=== PATIENT | male | born 1985 | race Caucasian/White ===

== ENCOUNTER 2018-08-26 10:01 | Emergency (ER) | payer MEDICAID ==
[~2018-08-26] VITALS: Ht 165.1 cm; Wt 130.6 kg
[~2018-08-26 10:01] MED LIST: ALPR1TAB2; ATEN-42; CEPH500T; CIPR-263; LISI10TA5
[2018-08-26] MEDS ORDERED: KETOROLAC 30MG/ML VIAL IV STA (10:31)
[2018-08-26] MEDS ORDERED: SODIUM CHLORIDE 0.9% 1,000 ML IV ONE (10:31)
[2018-08-26 12:09] LABS: HEMATOCRIT. 42.4 % (42.0-52.0); HEMOGLOBIN. 14.6 g/dL (14.0-18.0); MEAN CORPUSCULAR HEMOGLOBIN 30.1 pg (28.0-32.0); MEAN CORPUSCULAR VOLUME 87.4 fL (80.0-94.0); MEAN PLATELET VOLUME 8.4 fl (7.4-10.4); PLATELET 295 x1000/uL (130-400); RED BLOOD CELL COUNT 4.85 mill/uL (4.7-6.1); RED CELL DISTRIBUTION WIDTH 12.9 % (11.6-14.6)
[2018-08-26 12:17] LABS: CHLORIDE 106 mEq/L (98-107)
[2018-08-26 12:18] LABS: INR 1.1; PARTIAL THROMBOPLASTIN TIME 23.7 sec (23.4-31.0)
[2018-08-26 12:45] LABS: CLARITY URINE TURBID (CLEAR); COLOR URINE ORANGE (YELLOW); KETONES URINE NEGATIVE (NEGATIVE); LEUKOCYTE ESTERASE URINE TRACE (NEGATIVE); NITRITE URINE NEGATIVE (NEGATIVE); OCCULT BLOOD URINE 3+ (NEGATIVE); PROTEIN URINE 1+ (NEGATIVE); SPECIFIC GRAVITY URINE 1.016 (1.005-1.030); UROBILINOGEN URINE 0.2 E.U./dL (0.2-1.0)
[2018-08-26 13:09] LABS: PLATELET ESTIMATE NORMAL
[2018-08-26] MEDS ORDERED: IOHEXOL-300 100 ML BOTTLE ONE (15:00)
[2018-08-26 15:20] VITALS: BP 168/93
== END 2018-08-26 15:32 | disposition home or self-care (01) ==
LOC: ER 10:01
DX: N20.0 Calculus of kidney (principal); I10 Essential (primary) hypertension
CPT/HCPCS: 36415; 74177; 80053; 81003; 83690; 85025; 85610; 85730; 96361; 96374; 99285; J1885; J7030; Q9967

== ENCOUNTER 2019-02-01 00:46 | Emergency (ER) | payer MEDICAID ==
[~2019-02-01] VITALS: Ht 167.6 cm; Wt 113.0 kg
[2019-02-01] MEDS ORDERED: VISCOUS LIDOCAINE 2% 15 ML UDC PO STA (11:22)
[2019-02-01] MEDS ORDERED: MAGNESIUM/ALUMINUM HYDROXIDE/SIMETHICONE 30ML UDC PO STA (11:22)
[2019-02-01 11:27] LABS: BASOPHILS % 0.2 % (0.0-2.0); HEMATOCRIT. 44.6 % (42.0-52.0); HEMOGLOBIN. 15.1 g/dL (14.0-18.0); MEAN CORPUSCULAR HEMOGLOBIN 29.7 pg (28.0-32.0); MEAN CORPUSCULAR VOLUME 87.4 fL (80.0-94.0); MONOCYTES % 9.4 % (2.0-8.0); NEUTROPHILS % 77.4 % (40.0-76.0); PLATELET 339 x1000/uL (130-400); RED CELL DISTRIBUTION WIDTH 13.1 % (11.6-14.6)
[2019-02-01 11:34] LABS: INR 1.1; PROTHROMBIN TIME 11.3 sec (9.1-11.1)
[2019-02-01 11:35] LABS: CHLORIDE 106 mEq/L (98-107)
[2019-02-01 13:08] LABS: CLARITY URINE CLOUDY (CLEAR); COLOR URINE YELLOW (YELLOW); KETONES URINE NEGATIVE (NEGATIVE); LEUKOCYTE ESTERASE URINE TRACE (NEGATIVE); NITRITE URINE NEGATIVE (NEGATIVE); OCCULT BLOOD URINE 3+ (NEGATIVE); PROTEIN URINE TRACE (NEGATIVE); SPECIFIC GRAVITY URINE 1.021 (1.005-1.030); UROBILINOGEN URINE 0.2 E.U./dL (0.2-1.0)
[2019-02-01 13:41] VITALS: BP 140/77
== END 2019-02-01 13:49 | disposition home or self-care (01) ==
LOC: ER 00:46
DX: N13.2 Hydronephrosis with renal and ureteral calculous obstruction (principal); N17.9 Acute kidney failure, unspecified; I10 Essential (primary) hypertension
CPT/HCPCS: 36415; 74176; 99284

== ENCOUNTER 2019-05-16 14:57 | Emergency (ER) | payer MEDICAID ==
[~2019-05-16] VITALS: Ht 165.1 cm; Wt 100.0 kg
[2019-05-16] MEDS ORDERED: SODIUM CHLORIDE 0.9% 1,000 ML IV ONE (18:40)
[2019-05-16] MEDS ORDERED: VISCOUS LIDOCAINE 2% 15 ML UDC PO STA (18:40)
[2019-05-16] MEDS ORDERED: MAGNESIUM/ALUMINUM HYDROXIDE/SIMETHICONE 30ML UDC PO STA (18:40)
[2019-05-16] MEDS ORDERED: DICYCLOMINE 10 MG/5 ML ORAL SYR PO STA (18:40)
[2019-05-16 18:59] LABS: CHLORIDE 107 mEq/L (98-107)
[2019-05-16 19:00] LABS: BASOPHILS % 0.4 % (0.0-2.0); EOSINOPHILS % 0.4 % (0.0-5.0); HEMATOCRIT. 47.8 % (42.0-52.0); HEMOGLOBIN. 16.4 g/dL (14.0-18.0); MEAN CORPUSCULAR HEMOGLOBIN 30.2 pg (28.0-32.0); MEAN CORPUSCULAR VOLUME 87.7 fL (80.0-94.0); MEAN PLATELET VOLUME 8.4 fl (7.4-10.4); MONOCYTES % 9.3 % (2.0-8.0); NEUTROPHILS % 67.9 % (40.0-76.0); PLATELET 346 x1000/uL (130-400); RED BLOOD CELL COUNT 5.45 mill/uL (4.7-6.1); RED CELL DISTRIBUTION WIDTH 13.1 % (11.6-14.6)
[2019-05-16 19:38] LABS: CLARITY URINE CLOUDY (CLEAR); COLOR URINE YELLOW (YELLOW); KETONES URINE NEGATIVE (NEGATIVE); LEUKOCYTE ESTERASE URINE NEGATIVE (NEGATIVE); NITRITE URINE NEGATIVE (NEGATIVE); OCCULT BLOOD URINE 2+ (NEGATIVE); PROTEIN URINE NEGATIVE (NEGATIVE); SPECIFIC GRAVITY URINE 1.017 (1.005-1.030); UROBILINOGEN URINE 0.2 E.U./dL (0.2-1.0)
[2019-05-16 21:34] VITALS: BP 142/87
== END 2019-05-16 21:40 | disposition home or self-care (01) ==
LOC: ER 14:57
DX: R10.13 Epigastric pain (principal); F41.9 Anxiety disorder, unspecified; I10 Essential (primary) hypertension; Z98.890 Other specified postprocedural states; Z79.899 Other long term (current) drug therapy; Z87.442 Personal history of urinary calculi
CPT/HCPCS: 36415; 76770; 80053; 81003; 83605; 83690; 85025; 99284; J7030

== ENCOUNTER 2021-08-17 17:11 | Emergency (ER) | payer MEDICAID ==
[~2021-08-17] VITALS: Ht 170.2 cm; Wt 127.0 kg
[~2021-08-17 17:11] MED LIST changes: +LISI10TA26; -LISI10TA5
[2021-08-17] MEDS ORDERED: KETOROLAC 60MG/2ML VIAL IM ONE (23:00)
[2021-08-17 23:31] LABS: CHLORIDE 106 mEq/L (98-107)
[2021-08-17 23:32] LABS: BASOPHILS % 0.3 % (0.0-2.0); EOSINOPHILS % 0.6 % (0.0-5.0); HEMATOCRIT. 45.3 % (42.0-52.0); HEMOGLOBIN. 15.4 g/dL (14.0-18.0); LYMPHOCYTES % 22.4 % (20.0-50.0); MEAN CORPUSCULAR HEMOGLOBIN 29.6 pg (28.0-32.0); MEAN CORPUSCULAR VOLUME 86.8 fL (80.0-94.0); MEAN PLATELET VOLUME 8.3 fl (7.4-10.4); MONOCYTES % 9.3 % (2.0-8.0); NEUTROPHILS % 67.4 % (40.0-76.0); PLATELET 340 x1000/uL (130-400); RED BLOOD CELL COUNT 5.21 mill/uL (4.7-6.1); RED CELL DISTRIBUTION WIDTH 13.4 % (11.6-14.6)
[2021-08-17] MEDS ORDERED: KETOROLAC 30MG/ML VIAL IV STA (23:39)
[2021-08-17] MEDS ORDERED: SODIUM CHLORIDE 0.9% 1,000 ML IV ONE (23:45)
[2021-08-18 00:27] LABS: INR 1.1; PROTHROMBIN TIME 11.4 sec (9.6-11.0)
[2021-08-18 01:03] LABS: CLARITY URINE CLOUDY (CLEAR); COLOR URINE YELLOW (YELLOW); KETONES URINE NEGATIVE (NEGATIVE); LEUKOCYTE ESTERASE URINE NEGATIVE (NEGATIVE); NITRITE URINE NEGATIVE (NEGATIVE); OCCULT BLOOD URINE 3+ (NEGATIVE); PH URINE 5.5 (4.5-8.0); PROTEIN URINE TRACE (NEGATIVE); SPECIFIC GRAVITY URINE 1.014 (1.005-1.030); UROBILINOGEN URINE 0.2 E.U./dL (0.2-1.0)
[2021-08-18] MEDS ORDERED: IBUP-2029 MT (04:15)
[2021-08-18] MEDS ORDERED: TAMS-11 MT (04:17)
[2021-08-18 04:29] VITALS: BP 126/81
== END 2021-08-18 04:41 | disposition home or self-care (01) ==
LOC: ER 17:27
DX: N13.2 Hydronephrosis with renal and ureteral calculous obstruction (principal); I10 Essential (primary) hypertension
CPT/HCPCS: 36415; 76700; 80053; 81003; 83690; 85025; 85610; 87086; 96360; 96361; 96372; 99285; J1885; J7030

== ENCOUNTER 2025-07-11 10:25 | Emergency (ER) | payer MEDICAID ==
[~2025-07-11] VITALS: Ht 170.2 cm; Wt 136.0 kg
[~2025-07-11 10:25] MED LIST changes: +IBUP-2029 MT; +TAMS-54 MT
[2025-07-11 10:34] VITALS: O2SAT 97
[2025-07-11 11:41] LABS: BASOPHILS % 0.7 % (0.0-2.0); EOSINOPHILS % 0.4 % (0.0-5.0); HEMATOCRIT. 44.0 % (42.0-52.0); HEMOGLOBIN. 14.9 g/dL (14.0-18.0); LYMPHOCYTES % 21.5 % (20.0-50.0); MEAN PLATELET VOLUME 8.0 fl (7.4-10.4); MONOCYTES % 9.1 % (2.0-8.0); NEUTROPHILS % 68.3 % (40.0-76.0); PLATELET 305 x1000/uL (130-400); RED BLOOD CELL COUNT 5.02 mill/uL (4.7-6.1); RED CELL DISTRIBUTION WIDTH 13.4 % (11.6-14.6)
[2025-07-11 11:54] LABS: CREATININE 1.2 mg/dL (0.6-1.3); UREA NITROGEN BLOOD 21 mg/dL (9-23)
[2025-07-11] MEDS ORDERED: AMLO5TAB88 MT (12:14)
[2025-07-11] MEDS ORDERED: AMLODIPINE 5MG TABLET PO ONE (12:15)
[2025-07-11 12:28] VITALS: BP 154/100; PULSE 98; RESP 20; TEMP 36.8; O2SAT 97
== END 2025-07-11 12:30 | disposition home or self-care (01) ==
LOC: ER 10:25
DX: I10 Essential (primary) hypertension (principal); F41.9 Anxiety disorder, unspecified; Z79.899 Other long term (current) drug therapy
CPT/HCPCS: 36415; 80048; 85025; 99283